=== PATIENT | male | born 1985 | race African-American/Black ===

== ENCOUNTER 2019-07-02 23:06 | Emergency (ER) | payer SELFPAY ==
[~2019-07-02] VITALS: Ht 185.4 cm; Wt 90.7 kg
[2019-07-02] MEDS ORDERED: IBUPROFEN600 MG ORAL (23:25)
[2019-07-02] MEDS ORDERED: ZITHROMAX250 MG ORAL (23:25)
--- NOTE | 2019-07-02 23:25 | Emergency Room Report ---
History of Present Illness General Chief Complaint: Fever Source: Patient Present Illness HPI 33-year-old male with no past medical history. Presents with chief complaint of sore throat and fever. Onset for last 2 days. No nausea no vomiting. Slight cough. Mostly sore throat. Worse with eating and drinking. Worse with walking. Been taking [id number] cough medicine without much help. Any diarrhea. Pain is 8 out of 10. No drooling Allergies: Coded Allergies: No Known Allergies (Unverified , 07/02/19) Patient History Past Medical History: see triage record, old chart reviewed Past Surgical History: none Pertinent Family History: none Social History: Denies: smoking Immunizations: other Reviewed Nursing Documentation: PMH: Agreed; PSxH: Agreed Nursing Documentation-PMH Past Medical History: No Stated History Review of Systems Constitutional: Reports: sweats, fever Eye: Denies: eye pain, blurred vision ENT: Reports: throat pain Respiratory: Reports: cough Cardiovascular: Denies: chest pain, palpitations Gastrointestinal: Denies: abdominal pain, diarrhea, nausea, vomiting Musculoskeletal: Denies: back pain, joint pain Skin: Denies: rash Neurological: Denies: headache, numbness Endocrine: Denies: increased thirst, increased urine Hematologic/Lymphatic: Denies: easy bruising All Other Systems: negative except mentioned in HPI Physical Exam Vital Signs Date Time Temp Pulse Resp B/P (MAP) Pulse Ox O2 Delivery O2 Flow Rate FiO2 07/02/19 23:09 100.8 127 22 97/62 (74) 93 Room Air Vitals with fever and tachycardia Sp02 EP Interpretation: reviewed, normal General Appearance: well appearing, no apparent distress, alert Head: normocephalic, atraumatic Eyes: bilateral eye PERRL, bilateral eye EOMI ENT: hearing grossly normal, tonsillar swelling, pharyngeal erythema Neck: full range of motion, supple, no meningismus Respiratory: chest non-tender, lungs clear, normal breath sounds Cardiovascular #1: regular rate, rhythm, no murmur Gastrointestinal: normal bowel sounds, non tender, no mass, no organomegaly, no bruit, non-distended Musculoskeletal: back normal, normal range of motion, gait/station normal Psychiatric: mood/affect normal Medical Decision Making Diagnostic Impression: Primary Impression: Pharyngitis Qualified Codes: J02.9 - Acute pharyngitis, unspecified Additional Impression: Flu-like symptoms ER Course Patient with flulike illness. He has sore throat and erythema. This may be strep. Heart rate in the 110s and blood pressure stable and normal. Oxygenation is normal. Patient given IV fluid and antipyretic here. Feeling better. No evidence of any peritonsillar abscess, retropharyngeal abscess or Oscar angina. Will discharge home. Last Vital Signs Date Time Temp Pulse Resp B/P (MAP) Pulse Ox O2 Delivery O2 Flow Rate FiO2 07/02/19 23:09 100.8 127 22 97/62 (74) 93 Room Air Status: improved Disposition: HOME, SELF-CARE Scripts Azithromycin* (ZITHROMAX*) 250 Mg Tablet 250 MG ORAL DAILY, #6 TAB 0 Refills Take two tables once daily for 1 day, then one tablet once daily for 4 days. Prov: Kareem Saucedo MD 07/02/19 Ibuprofen* (MOTRIN*) 600 Mg Tablet 600 MG ORAL THREE TIMES A DAY, #30 TAB 0 Refills Prov: Kareem Saucedo MD 07/02/19 Additional Instructions: Increase fluids. Salt water gargle. Follow-up with your doctor in 7 days. Return if symptoms worsen. Kareem Saucedo MD Jul 02, 2019 23:25
[2019-07-02] MEDS ORDERED: Ketorolac 30mg Inj IV ONE (23:30)
[2019-07-02] MEDS ORDERED: cefTRIAXone 1 GM in NS 55 ML IVPB ONE (23:30)
[2019-07-02] MEDS ORDERED: Acetaminophen 500mg (ES) tab ORAL ONE (23:30)
[2019-07-02] MEDS ORDERED: Dexamethasone 4mg/ml vial IVP ONE (23:30)
[2019-07-02 23:39] LABS: HEMATOCRIT 44.4 % (42.0-52.0); HEMOGLOBIN 15.4 G/DL (14.2-18.0); MEAN CORPUSCULAR VOLUME 86 FL (80-99); PLATELET COUNT 374 K/UL (150-450); RED BLOOD COUNT 5.15 M/UL (4.70-6.10); RED CELL DISTRIBUTION WIDTH 11.6 % (11.6-14.8); WHITE BLOOD COUNT 13.2 K/UL (4.8-10.8)
--- NOTE | 2019-07-02 23:45 | NUR ---
ED Nurse Note: walk-in patient with complaints of sore throat and cough.
[2019-07-02 23:46] VITALS: BP 148/67
[2019-07-02 23:50] LABS: ANION GAP 10 mmol/L (5-15); BLOOD UREA NITROGEN 11 mg/dL (7-18); CALCIUM 9.4 MG/DL (8.5-10.1); CARBON DIOXIDE 24 MMOL/L (21-32); CHLORIDE 104 MMOL/L (98-107); CREATININE 1.2 MG/DL (0.55-1.30); POTASSIUM 3.6 MMOL/L (3.5-5.1); SODIUM 138 MMOL/L (136-145)
[2019-07-03 00:29] VITALS: BP 148/67
--- NOTE | 2019-07-03 00:29 | NUR ---
ED Nurse Note: Patient cleared for discharge by Thom. Patient verbalized understanding of discharge instructions. Patient ambulatory with steady gait and A&Ox4. Patient departed with all belongings accompanied by his sister.
== END 2019-07-03 00:29 | disposition home or self-care (01) ==
LOC: EMR 23:31
DX: J02.9 Acute pharyngitis, unspecified (principal)
CPT/HCPCS: 36415; 80048; 85025; 96361; 96365; 96375; 99284; J0696; J1100; J1885; J7030